=== PATIENT | male | born 1950 | race Asian ===

== ENCOUNTER 2019-09-23 11:19 | Inpatient (IN) | payer BC ==
[2019-09-23] MEDS ORDERED: SODIUM CHLORIDE 1,000 ML IV STA (11:42)
[2019-09-23] MEDS ORDERED: ACETAMINOPHEN 1000 MG/100 ML VIAL (NON FORMULARY) IVPB ONE (11:42)
[2019-09-23] MEDS ORDERED: ASPIRIN 325 MG TABLET PO ONE (11:42)
[2019-09-23] MEDS ORDERED: ASPIRIN 81 MG CHEWABLE TABLETS ONE (11:45)
[2019-09-23] MEDS ORDERED: ACETAMINOPHEN INJECTION 100 ML IVPB ONE (12:10)
[2019-09-23 12:17] LABS: VENOUS PC02 48.7 mmHg (38-52); VENOUS PH 7.38 (7.31-7.41)
[2019-09-23 12:18] LABS: VENOUS PO2 < 49 mmHg (28-48)
--- NOTE | 2019-09-23 12:18 | PDOC ---
Documentation entered by Aubrey Iqbal SCRIBE, acting as scribe for Patric Nath MD. Patric Nath MD: This documentation has been prepared by the Rasheed pineda Daniel, SCRIBE, under my direction and personally reviewed by me in its entirety. I confirm that the documentation accurately reflects all work, treatment, procedures, and medical decision making performed by me. Attending Attestation - Resident Resident Name: Cuate Elliott - ED Attending Attestation I have performed the following: I have examined & evaluated the patient, The case was reviewed & discussed with the resident, I agree w/resident's findings & plan, Exceptions are as noted - HPI HPI: 09/23/19 11:46 The patient is a 69 year old male with a past medical history of diabetes, HTN, and WPW s/p cardiac ablation ([facility] March 2019) here today for evaluation of chest discomfort and fevers. Pt states that he first started having flu-like symptoms a week ago. He reports fever of 100.2 and endorses malaise, and bodyaches. The patient reports that he was raking leaves on monday (09/20/19) when he developed chest discomfort which he states is similar to heartburn, worse with deep breaths and leaning forward, and is constant. As per family, the patient saw Dr. Carey this week and had a normal echo. Patient denies headache, lightheadedness. Denies fever, chills. Denies shortness of breath. Denies nausea, vomiting, diarrhea, abdominal pain. Denies leg swelling. Denies recent travel/immobilization. Allergies: [employer] Teacher: Toribio Carey - Physicial Exam PE: 09/23/19 11:46 GENERAL: Awake, alert, and fully oriented, in no acute distress. HEAD: No signs of trauma EYES: PERRLA, EOMI, sclera anicteric, conjunctiva clear ENT: Auricles normal inspection, hearing grossly normal, nares patent, oropharynx clear without exudates. Moist mucosa NECK: Nontender, no stepoffs, Normal ROM, supple, no lymphadenopathy, JVD, or masses LUNGS: Breath sounds equal, clear to auscultation bilaterally. No wheezes, and no crackles HEART: Regular rate and rhythm, normal S1 and S2, no murmurs, rubs or gallops ABDOMEN: Soft, nontender, normoactive bowel sounds. No guarding, no rebound. No masses EXTREMITIES: Normal range of motion, no edema. No clubbing or cyanosis. No cords, erythema, or tenderness NEUROLOGICAL: Cranial nerves II through XII intact. 5/5 strength and sensation in all extremities, Normal speech, normal gait, normal cerebellar function SKIN: Warm, Dry, normal turgor, no rashes or lesions noted. - Critical Care Time Total Critical Care Time: 60 Critical Care Statement: The care of this patient involved high complexity decision making to prevent further life threatening deterioration of the patient 's condition and/or to evaluate & treat vital organ system(s) failure or risk of failure. - Medical Decision Making 09/23/19 12:29 69 M with chest pain, fevers. EKG today show sinus tach with diffuse MA- depressions and ST elevations. Concerning for pericarditis. Given recent viral illness, suspect viral pericarditis. Bedside echo shows + pericardial effusion. - Labs, trop - Aspirin - IVF Discussed case with Dr. Carey and reviewed EKG, which he agrees is not consistent with STEMI EKG.
--- NOTE | 2019-09-23 12:19 | PDOC ---
History of Present Illness - General Chief Complaint: Chest Pain Stated Complaint: CHEST PAIN/FEVER/HEADACHE Time Seen by Provider: 09/23/19 11:33 History Source: Patient, Family Exam Limitations: No Limitations - History of Present Illness Initial Comments: 09/23/19 12:10 69M with a PMH of HLD, DM, WPW s/p ablation who presents to the ER with complaints of flu-like symptoms and SOB. The patient states that he's had about 1 week of flu-like symptoms including myalgias and weakness. For the past 3-4 days, he has also complained of chest tightness and SOB. He states that he may have overexerted himself raking his law 4 days ago and that's when he developed the chest tightness. He admits to chest tightness presently with SOB which is worsened when he leans forward. Denies nausea, vomiting, abd pain, palpitations , and diaphoresis. Past History - Past Medical History Allergies/Adverse Reactions: Allergies Allergy/AdvReac Type Severity Reaction Status Date / Time No Known Allergies Allergy Verified 09/23/19 11:28 Home Medications: Ambulatory Orders Atorvastatin Ca [Lipitor] 10 mg PO HS 09/23/19 Metformin HCl [Glucophage] 500 mg PO TID 09/23/19 Metoprolol Succinate [Toprol Xl] 25 mg PO DAILY 09/23/19 Cardiac Disorders: Yes COPD: No GI Disorders: No Psychiatric Problems: No - Surgical History Cardiac Surgery: Yes - Immunization History Immunization Up to Date: No - Psycho Social/Smoking Cessation Hx Smoking History: Never smoked Have you smoked in the past 12 months: No Information on smoking cessation initiated: No Hx Alcohol Use: No Drug/Substance Use Hx: No Review of Systems - Review of Systems Able to Perform ROS?: Yes Comments:: 09/23/19 12:19 GENERAL/CONSTITUTIONAL: No fever or chills. No weakness. HEAD, EYES, EARS, NOSE AND THROAT: No change in vision. No ear pain or discharge. No sore throat. CARDIOVASCULAR: + for chest tightness. No palpitations, or lightheadedness. RESPIRATORY: + for SOB. No cough, wheezing, shortness of breath, or hemoptysis. GASTROINTESTINAL: No abdominal pain, nausea, vomiting, diarrhea, or constipation. GENITOURINARY: No dysuria, frequency, hematuria, or change in urination. MUSCULOSKELETAL: + for myalgias. No neck or back pain. SKIN: No rash or lesions. NEUROLOGIC: No headache, numbness, tingling, focal weakness, loss of consciousness, or change in strength/sensation. Is the patient limited [place] proficient: No *Physical Exam - Vital Signs Last Vital Signs Temp Pulse Resp BP Pulse Ox 98.8 F 137 H 16 132/81 98 09/23/19 11:24 09/23/19 11:24 09/23/19 11:24 09/23/19 11:24 09/23/19 11:24 - Physical Exam Comments: 09/23/19 12:24 GENERAL: Well developed, well nourished. Awake and alert. No acute distress. HEENT: Normocephalic, atraumatic. Hearing grossly normal. Moist mucous membranes. PERRLA, EOMI. No conjunctival pallor. Sclera are non-icteric. NECK: Supple. Full ROM. No JVD. CARDIOVASCULAR: Tachycardic with regular rhythm. No murmurs, rubs, or gallops. PULMONARY: No evidence of respiratory distress. Lungs clear to auscultation bilaterally. No wheezing, rales or rhonchi. ABDOMINAL: Soft. Non-tender. Non-distended. No rebound or guarding. GENITOURINARY: No CVA tenderness bilaterally. MUSCULOSKELETAL: Normal range of motion at all joints. No bony deformities or tenderness. EXTREMITIES: No cyanosis. No clubbing. No edema. No calf tenderness or swelling. SKIN: Warm and dry. Normal capillary refill. No rashes. No jaundice. NEUROLOGICAL: Alert, awake, appropriate. Cranial nerves 2-12 grossly intact. Normal speech. Gait is normal without ataxia. PSYCHIATRIC: Cooperative. Good eye contact. Appropriate mood and affect. Heart Score/ECG Review - History History: Slightly suspicious - Electrocardiogram EKG: Normal - Age Age: >/= 65 - Risk Factors Risk Factors Heart Score: Yes Hx Hypercholesterolemia, Yes Hx Diabetes, Yes Positive family hx of cardiac disease Based on the list above the patient has:: >/=3 risk factors or Hx atherosclerotic disease #1 Compared to previous ECG there are: Previous ECG unavail 09/23/19 12:28 Sinus tach @ 135 AR 146 QRS 84 QTc 417 JESSI noted in II, III, aVF AR depressions noted throughout all leads No priors ED Treatment Course - LABORATORY CBC & Chemistry Diagram: 09/23/19 12:00 09/23/19 12:00 - Medications Given in the ED: ED Medications Discontinued Medications Generic Name Dose Route Start Last Admin Trade Name Christel PRN Reason Stop Dose Admin Aspirin 325 mg 09/23/19 11:42 09/23/19 12:07 Asa - PO 09/23/19 11:43 325 mg ONCE ONE Administration Medical Decision Making - Medical Decision Making 09/23/19 12:29 69M with a PMH of DM, HLD, and former ablation who presents to the ER with complaints of myalgias, chest tightness, and SOB concerning for SD, CHF, pericarditis. Pt was also noted to be tachycardic and febrile on arrival so sepsis and cardiac workup in progress. POCUS shows small pericardial effusion w/ o tamponade physiology and adequate contractility. Pending labs and CXR. 09/23/19 15:50 Labs WNL. Lactate slightly elevated. Dr. Carey saw patient and agrees with admission. Pt endorsed to Dr. Cook for admission. Discharge - Discharge Information Problems reviewed: Yes Clinical Impression/Diagnosis: Pericardial effusion Viral pericarditis Qualifiers: Chronicity: acute Qualified Code(s): I30.1 - Infective pericarditis Condition: Guarded - Admission Yes - Follow up/Referral - Patient Discharge Instructions - Post Discharge Activity
[2019-09-23 12:23] LABS: BASO % 0.3 % (0-2.0); EOS % 0.1 % (0-4.5); HEMATOCRIT 41.2 % (35.4-49); LYMPH % 9.2 % (8-40); MCH 30.3 pg (25.7-33.7); MEAN CELL VOLUME 89.1 fl (80-96); MEAN PLT VOLUME 9.9 fl (7.5-11.1); MONO % 9.2 % (3.8-10.2); NEUT % 81.2 % (42.8-82.8); PLATELET COUNT 150 K/MM3 (134-434); RBC 4.62 M/mm3 (4.00-5.60); RDW 13.9 % (11.9-15.9); WHITE BLOOD COUNT 9.5 K/mm3 (4.0-10.0)
[2019-09-23 12:32] LABS: INR 1.2 (0.83-1.09); PROTHROMBIN TIME (PATIENT) 14.2 SEC (9.7-13.0)
[2019-09-23 12:55] LABS: ALBUMIN 3.6 g/dl (3.4-5.0); BILIRUBIN,TOTAL 1.4 mg/dL (0.2-1); BLOOD UREA NITROGEN 13.3 mg/dL (7-18); CALCIUM 8.9 mg/dL (8.5-10.1); POTASSIUM 4.6 mmol/L (3.5-5.1); TOT PROT 7.2 g/dl (6.4-8.2)
[2019-09-23] MEDS ORDERED: SODIUM CHLORIDE 0.9% 1000 ML INFUS.BAG IV ONE (13:10)
--- NOTE | 2019-09-23 13:19 | CON.CARD ---
Consult Consult Specialty:: Cardiology Referred by:: ER Reason for Consultation:: Cardiac evaluation - History of Present Illness Chief Complaint: Chest pain and shortness of breath History of Present Illness: Patient is a 69 year old Tajik male well known to me with underlying history of type 2 DM, PSVT s/p EP study and RFA at [facility] (Dr. Miley Lugo) complicated by pericardial effusion/tamponade s/p pericardiocentesis with drain. He was seen by me in the office last week and was unremarkable. He presents to ED with chest discomfort with deep breath and also complains of shortness of breath and increased weakness. He complains of fever. ECG reveals sinus tachycardia with diffuse ST segment elevations. He denies palpitations. He denies paroxysmal nocturnal dyspnea or orthopnea. He denies nausea, vomiting, diarrhea or abdominal pain. He denies headache or lightheadedness. Last echocardiography in the office 09/06/19) revealed normal LV systolic function, LVEF 60-65%, no pericardial effusion, mild MR and mild TR. - History Source History Provided By: Patient, Medical Record Limitations to Obtaining History: No Limitations - Past Medical History Cardio/Vascular: Yes: Other (PSVT s/p RFA complicated by pericardial effusion and tamponade) Endocrine: Yes: Diabetes Mellitus - Past Surgical History Additional Surgical History: pericardiocentesis. RFA - Alcohol/Substance Use Hx Alcohol Use: No - Smoking History Smoking history: Never smoked Have you smoked in the past 12 months: No Home Medications - Allergies Allergies/Adverse Reactions: Allergies Allergy/AdvReac Type Severity Reaction Status Date / Time No Known Allergies Allergy Verified 09/23/19 11:28 Family Medical History Family History: Denies Review of Systems - Review of Systems Constitutional: reports: Fever, Weakness. denies: Chills Cardiovascular: reports: Chest Pain, Shortness of Breath. denies: Palpitations Respiratory: reports: SOB. denies: Cough, Hemoptysis, Orthopnea, PND Gastrointestinal: denies: Abdominal Pain, Constipation, Diarrhea, Melena, Nausea , Rectal Bleeding, Vomiting Genitourinary: denies: Dysuria, Hematuria Musculoskeletal: denies: Back Pain, Joint Pain Neurological: denies: Dizziness, Headache, Seizure, Syncope Vital Signs: Vital Signs Temperature 98.8 F 09/23/19 11:24 Pulse Rate 137 H 09/23/19 11:24 Respiratory Rate 16 09/23/19 11:24 Blood Pressure 132/81 09/23/19 11:24 O2 Sat by Pulse Oximetry (%) 98 09/23/19 11:24 Eyes: Yes: PERRL HENT: Yes: Atraumatic Neck: Yes: Supple Respiratory: Yes: Diminished Gastrointestinal: Yes: Normal Bowel Sounds, Soft. No: Tenderness Cardiovascular: Yes: Tachycardia JVD: No Carotid Bruit: No Heart Sounds: Yes: S1, S2 Edema: No - Other Data Labs, Other Data: CBC, BMP 09/23/19 12:00 09/23/19 12:00 INR, PTT INR 1.20 (0.83-1.09) H 09/23/19 12:00 Troponin, BNP 09/23/19 09/23/19 12:00 12:00 Troponin I < 0.02 B-Natriuretic Peptide 289.4 H Sinus tachycardia, ST abnormality, ? pericarditis Echo: Pending Imaging - Results Chest X-ray: Pending EKG: Report Reviewed Problem List - Problems (1) Viral pericarditis Code(s): B33.23 - VIRAL PERICARDITIS (2) PSVT (paroxysmal supraventricular tachycardia) Code(s): I47.1 - SUPRAVENTRICULAR TACHYCARDIA (3) Diabetes mellitus Code(s): E11.9 - TYPE 2 DIABETES MELLITUS WITHOUT COMPLICATIONS (4) Pericardial effusion Code(s): I31.3 - PERICARDIAL EFFUSION (NONINFLAMMATORY) Assessment/Plan 1. Clinical presentation suggests pericarditis ?viral 2. History of PSVT s/p EP and RFA 3. Above procedure complicated by pericardial effusion/tamponade s/p pericardiocentesis and drain 4. Type 2 DM PLAN: 1. Echocardiography to assess LV/RV, valvular function and pericardial effusion 2. Consider NSAIDs 3. Rule out flu 4. Continue Metoprolol ER 25 mg QD 5. Check ESR and CRP 6. Trend troponins Further plans are to follow Toribio Carey MD
[2019-09-23] MEDS ORDERED: metoPROLOL SUCCINATE 25 MG TAB.SR.24H (FP) PO ONE (15:00)
[2019-09-23] MEDS ORDERED: METOPROLOL TARTRATE 25 MG TABLET (FP) ONE (15:47)
--- NOTE | 2019-09-23 16:53 | ECHO ---
Name: MARIYA AVILES Exam:Adult Echocardiogram Study Date: 09/23/2019 03:56 PM Age: 69 yrs Height: 64 in Weight: 145 lb BSA: 1.7 m2 MMode/2D Measurements & Calculations IVSd: 1.2 cm Ao root diam: 3.0 cm LVIDd: 3.2 cm LA dimension: 3.0 cm LVIDs: 2.4 cm LVPWd: 1.1 cm LVPWs: 0.77 cm EDV(Teich): 41.5 ml ESV(Teich): 20.4 ml LVOT diam: 2.2 cm LAV (MOD-bp): 31.9 ml TAPSE: 1.2 cm Doppler Measurements & Calculations MV E max cindy: 72.8 cm/sec Ao V2 max: 99.9 cm/sec MV A max cindy: 35.4 cm/sec Ao max P.1 mmHg MV E/A: 2.1 ERNESTINE(V,D): 3.2 cm2 MV dec time: 0.18 sec LV V1 max P.0 mmHg PA V2 max: 106.6 cm/sec LV V1 max: 86.3 cm/sec PA max P.5 mmHg Procedure A complete two-dimensional transthoracic echocardiogram was performed (2D, M-mode, Doppler and color flow Doppler). Left Ventricle The left ventricle is normal in size. There is mild concentric left ventricular hypertrophy. Left megan tricular systolic function is normal. Ejection Fraction = 55-60%. No regional wall motion abnormalities noted. Right Ventricle The right ventricle is normal size. The right ventricular systolic function is normal. Atria The left atrial size is normal. Right atrial size is normal. Mitral Valve The mitral valve is normal in structure and function. There is mild mitral regurgitation. Tricuspid Valve The tricuspid valve is normal in structure and function. There is mild tricuspid regurgitation. Aortic Valve The aortic valve is normal in structure and function. No aortic regurgitation is present. Pulmonic Valve The pulmonic valve is not well visualized. Trace to mild pulmonic valvular regurgitation. Great Vessels The aortic root is normal size. Pericardium/Pleura Small to moderate pericardial effusion with mid diastolic collapse of RV. Interpretation Summary The left ventricle is normal in size. There is mild concentric left ventricular hypertrophy. Left ventricular systolic function is normal. No regional wall motion abnormalities noted. Ejection Fraction = 55-60%. The right ventricular systolic function is normal. The left atrial size is normal. Right atrial size is normal. There is mild mitral regurgitation. There is mild tricuspid regurgitation. Trace to mild pulmonic valvular regurgitation. Small to moderate pericardial effusion with mid diastolic collapse of RV Clinical correlation is recommended Toribio Carey MD 09/23/2019 04:52 PM
--- NOTE | 2019-09-23 18:33 | HP ---
Admitting History and Physical - Primary Care Physician PCP: Hector Cook - Admission History of Present Illness: 69 year old male with a past medical history of diabetes, HTN, and WPW s/p cardiac ablation ([facility] March 2019) here today for evaluation of chest discomfort and fevers. Pt states that he first started having flu-like symptoms a week ago. He reports fever of 100.2 and endorses malaise, and bodyaches. The patient reports that he was raking leaves on monday (09/20/19) when he developed chest discomfort which he states is similar to heartburn, worse with deep breaths and leaning forward, and is constant. As per family, the patient saw Dr. Carey this week and had a normal echo. - Past Medical History Cardiovascular: Yes: HTN, Other (PSVT s/p RFA complicated by pericardial effusion and tamponade) Endocrine: Yes: Diabetes Mellitus - Smoking History Smoking history: Never smoked Have you smoked in the past 12 months: No - Alcohol/Substance Use Hx Alcohol Use: No Home Medications - Allergies Allergies/Adverse Reactions: Allergies Allergy/AdvReac Type Severity Reaction Status Date / Time No Known Allergies Allergy Verified 09/23/19 11:28 - Home Medications Home Medications: Ambulatory Orders Atorvastatin Ca [Lipitor] 10 mg PO HS 09/23/19 Metformin HCl [Glucophage] 500 mg PO TID 09/23/19 Metoprolol Succinate [Toprol Xl] 25 mg PO DAILY 09/23/19 Physical Examination Vital Signs: Vital Signs Temperature 98.5 F 09/23/19 15:28 Pulse Rate 112 H 09/23/19 15:28 Respiratory Rate 19 09/23/19 15:28 Blood Pressure 107/73 09/23/19 15:28 O2 Sat by Pulse Oximetry (%) 100 09/23/19 15:28 Constitutional: Yes: No Distress HENT: Yes: Atraumatic Neck: Yes: Supple Cardiovascular: Yes: Regular Rate and Rhythm Respiratory: Yes: CTA Bilaterally Gastrointestinal: Yes: Normal Bowel Sounds Extremities: Yes: WNL Edema: No Peripheral Pulses WNL: Yes Neurological: Yes: Alert, Oriented Labs: CBC, BMP 09/23/19 12:00 09/23/19 12:00 Imaging - Results X-ray: Report Reviewed Problem List - Problems (1) Diabetes mellitus Assessment/Plan: on meds monitor bgm Code(s): E11.9 - TYPE 2 DIABETES MELLITUS WITHOUT COMPLICATIONS (2) PSVT (paroxysmal supraventricular tachycardia) Code(s): I47.1 - SUPRAVENTRICULAR TACHYCARDIA (3) Pericardial effusion Assessment/Plan: echo to assess cardiology consult Code(s): I31.3 - PERICARDIAL EFFUSION (NONINFLAMMATORY) (4) Viral pericarditis Assessment/Plan: will get id consult Code(s): B33.23 - VIRAL PERICARDITIS Qualifiers: Chronicity: acute Qualified Code(s): I30.1 - Infective pericarditis Assessment/Plan Laboratory Tests 09/23/19 09/23/19 09/23/19 12:00 12:00 12:00 WBC 9.5 RBC 4.62 Hgb 14.0 Hct 41.2 MCV 89.1 MCH 30.3 MCHC 34.0 RDW 13.9 Plt Count 150 MPV 9.9 Absolute Neuts (auto) 7.7 Neutrophils % 81.2 Lymphocytes % 9.2 Monocytes % 9.2 Eosinophils % 0.1 Basophils % 0.3 Nucleated RBC % 0 ESR PT with INR INR PTT (Actin FS) 35.8 VBG pH POC VBG pCO2 POC VBG pO2 VBG HCO3 VBG O2 Sat (Shai) VBG Base Excess Sodium Potassium Chloride Carbon Dioxide Anion Gap BUN Creatinine Est GFR (CKD-EPI)AfAm Est GFR (CKD-EPI)NonAf Random Glucose Lactic Acid Calcium Total Bilirubin AST ALT Alkaline Phosphatase Creatine Kinase 31 Troponin I < 0.02 C-Reactive Protein B-Natriuretic Peptide Total Protein Albumin Lipase TSH Influenza A (Rapid) Influenza B (Rapid) 09/23/19 09/23/19 09/23/19 12:00 12:00 12:00 WBC RBC Hgb Hct MCV MCH MCHC RDW Plt Count MPV Absolute Neuts (auto) Neutrophils % Lymphocytes % Monocytes % Eosinophils % Basophils % Nucleated RBC % ESR PT with INR INR PTT (Actin FS) VBG pH POC VBG pCO2 POC VBG pO2 VBG HCO3 VBG O2 Sat (Shai) VBG Base Excess Sodium 132 L Potassium 4.6 Chloride 98 Carbon Dioxide 28 Anion Gap 7 L BUN 13.3 Creatinine 1.0 Est GFR (CKD-EPI)AfAm 89.86 Est GFR (CKD-EPI)NonAf 77.54 Random Glucose 236 H Lactic Acid 2.3 H* Calcium 8.9 Total Bilirubin 1.4 H AST 34 ALT 63 H Alkaline Phosphatase 101 Creatine Kinase Troponin I C-Reactive Protein B-Natriuretic Peptide Total Protein 7.2 Albumin 3.6 Lipase 137 TSH 0.74 Influenza A (Rapid) Influenza B (Rapid) 09/23/19 09/23/19 09/23/19 12:00 12:00 12:00 WBC RBC Hgb Hct MCV MCH MCHC RDW Plt Count MPV Absolute Neuts (auto) Neutrophils % Lymphocytes % Monocytes % Eosinophils % Basophils % Nucleated RBC % ESR PT with INR 14.20 H INR 1.20 H PTT (Actin FS) VBG pH 7.38 POC VBG pCO2 48.7 POC VBG pO2 < 49 H VBG HCO3 27.9 VBG O2 Sat (Shai) 27.7 L VBG Base Excess 2.4 H Sodium Potassium Chloride Carbon Dioxide Anion Gap BUN Creatinine Est GFR (CKD-EPI)AfAm Est GFR (CKD-EPI)NonAf Random Glucose Lactic Acid Calcium Total Bilirubin AST ALT Alkaline Phosphatase Creatine Kinase Troponin I C-Reactive Protein B-Natriuretic Peptide 289.4 H Total Protein Albumin Lipase TSH Influenza A (Rapid) Influenza B (Rapid) 09/23/19 09/23/19 09/23/19 15:26 15:45 15:45 WBC RBC Hgb Hct MCV MCH MCHC RDW Plt Count MPV Absolute Neuts (auto) Neutrophils % Lymphocytes % Monocytes % Eosinophils % Basophils % Nucleated RBC % ESR 44 H PT with INR INR PTT (Actin FS) VBG pH POC VBG pCO2 POC VBG pO2 VBG HCO3 VBG O2 Sat (Shai) VBG Base Excess Sodium Potassium Chloride Carbon Dioxide Anion Gap BUN Creatinine Est GFR (CKD-EPI)AfAm Est GFR (CKD-EPI)NonAf Random Glucose Lactic Acid Calcium Total Bilirubin AST ALT Alkaline Phosphatase Creatine Kinase Troponin I C-Reactive Protein 18.7 H B-Natriuretic Peptide Total Protein Albumin Lipase TSH Influenza A (Rapid) Negative Influenza B (Rapid) Negative Active Medications Generic Name Dose Route Start Last Admin Trade Name Freq PRN Reason Stop Dose Admin Colchicine 0.6 mg 09/23/19 18:00 Colcrys PO BID HILLARY Naproxen 500 mg 09/23/19 22:00 Naprosyn - PO BID HILLARY Active Medications Generic Name Dose Route Start Last Admin Trade Name Freq PRN Reason Stop Dose Admin Acetaminophen 650 mg 09/23/19 21:34 09/23/19 22:22 Tylenol - PO 650 mg Q6H PRN Administration FEVER Atorvastatin Calcium 10 mg 09/23/19 22:00 09/23/19 22:22 Lipitor - PO 10 mg HS HILLARY Administration Colchicine 0.6 mg 09/23/19 18:00 09/24/19 10:32 Colcrys PO 0.6 mg BID H[place]ARY Administration Metformin HCl 500 mg 09/23/19 22:00 09/24/19 18:04 Glucophage - PO 500 mg TIDAC H[place] Administration Metoprolol Succinate 25 mg 09/24/19 10:00 09/24/19 10:31 Toprol Xl - PO 25 mg DAILY H[place] Administration Naproxen 500 mg 09/23/19 22:00 09/24/19 10:31 Naprosyn - PO 500 mg BID [place] Administration
[2019-09-23] MEDS ORDERED: COLCHICINE 0.6 MG CAP ONE (19:41)
[2019-09-23] MEDS: COLCHICINE 0.6 MG CAP PO SCH ×2 (20:24→22:22)
[2019-09-23] MEDS ORDERED: ACETAMINOPHEN 325 MG TABLET (FP) PO PRN (21:34)
[2019-09-23] MEDS: ATORVASTATIN CA 10 MG TABLET (FP) PO SCH (22:22)
[2019-09-23] MEDS: metFORMIN HCL 500 MG TABLET (FP) PO SCH (22:22)
[2019-09-23] MEDS: NAPROXEN 500 MG TABLET (FP) PO SCH (22:23)
[2019-09-24 02:24] VITALS: BMI 25.3
[2019-09-24] MEDS: metFORMIN HCL 500 MG TABLET (FP) PO SCH ×3 (06:35→18:04)
[2019-09-24 07:03] LABS: HEMATOCRIT 36.9 % (35.4-49); HEMOGLOBIN 12.3 GM/dL (11.7-16.9); LYMPH % 9.2 % (8-40); MCH 30.3 pg (25.7-33.7); MCHC 33.3 g/dl (32.0-35.9); MEAN CELL VOLUME 90.9 fl (80-96); MEAN PLT VOLUME 9.8 fl (7.5-11.1); MONO % 10.2 % (3.8-10.2); NEUT % 78.9 % (42.8-82.8); PLATELET COUNT 123 K/MM3 (134-434); RBC 4.06 M/mm3 (4.00-5.60); RDW 14.4 % (11.9-15.9)
[2019-09-24 07:04] LABS: BASO % 0.4 % (0-2.0); EOS % 1.3 % (0-4.5)
[2019-09-24 07:52] LABS: ALBUMIN 3.1 g/dl (3.4-5.0); BILIRUBIN,TOTAL 0.8 mg/dL (0.2-1); CALCIUM 8.2 mg/dL (8.5-10.1); CREATININE 0.9 mg/dL (0.55-1.3); POTASSIUM 4.1 mmol/L (3.5-5.1); TOT PROT 5.9 g/dl (6.4-8.2)
--- NOTE | 2019-09-24 10:26 | PN ---
Progress Note, Physician Chief Complaint: Events noted Feels better History of Present Illness: Patient was seen and examined. Awake and alert. Chart was reviewed Denies shortness of breath or palpitations. Denies chest pain - Current Medication List Current Medications: Active Medications Acetaminophen (Tylenol -) 650 mg PO Q6H PRN PRN Reason: FEVER Last Admin: 09/23/19 22:22 Dose: 650 mg Atorvastatin Calcium (Lipitor -) 10 mg PO HS [facility] Last Admin: 09/23/19 22:22 Dose: 10 mg Colchicine (Colcrys) 0.6 mg PO BID [facility] Last Admin: 09/23/19 22:22 Dose: 0.6 mg Metformin HCl (Glucophage -) 500 mg PO TIDAC [facility] Last Admin: 09/24/19 06:35 Dose: 500 mg Metoprolol Succinate (Toprol Xl -) 25 mg PO DAILY [facility] Naproxen (Naprosyn -) 500 mg PO BID [facility] Last Admin: 09/23/19 22:23 Dose: 500 mg - Objective Vital Signs: Vital Signs Temperature 98.4 F 09/24/19 06:00 Pulse Rate 98 H 09/24/19 09:49 Respiratory Rate 18 09/24/19 09:49 Blood Pressure 115/71 09/24/19 09:49 O2 Sat by Pulse Oximetry (%) 97 09/24/19 09:00 Eyes: Yes: PERRL HENT: Yes: Atraumatic Neck: Yes: Supple Cardiovascular: Yes: Tachycardia, S1, S2 Respiratory: Yes: CTA Bilaterally Gastrointestinal: Yes: Normal Bowel Sounds, Soft. No: Tenderness Edema: No Additional Findings/Remarks: - Review of Systems Constitutional: reports: Fever, Weakness. denies: Chills Cardiovascular: reports: Chest Pain, Shortness of Breath. denies: Palpitations Respiratory: reports: SOB. denies: Cough, Hemoptysis, Orthopnea, PND Gastrointestinal: denies: Abdominal Pain, Constipation, Diarrhea, Melena, Nausea , Rectal Bleeding, Vomiting Genitourinary: denies: Dysuria, Hematuria Musculoskeletal: denies: Back Pain, Joint Pain Neurological: denies: Dizziness, Headache, Seizure, Syncope Labs: CBC, BMP 09/24/19 06:15 09/24/19 06:15 INR, PTT INR 1.20 (0.83-1.09) H 11/18/19 12:00 Problem List - Problems (1) Viral pericarditis Code(s): B33.23 - VIRAL PERICARDITIS Qualifiers: Chronicity: acute Qualified Code(s): I30.1 - Infective pericarditis (2) PSVT (paroxysmal supraventricular tachycardia) Code(s): I47.1 - SUPRAVENTRICULAR TACHYCARDIA (3) Diabetes mellitus Code(s): E11.9 - TYPE 2 DIABETES MELLITUS WITHOUT COMPLICATIONS (4) Pericardial effusion Code(s): I31.3 - PERICARDIAL EFFUSION (NONINFLAMMATORY) Assessment/Plan 1. Clinical presentation suggests pericarditis ?viral currently with pericardial effusion with RV compression 2. History of PSVT s/p EP and RFA 3. Above procedure complicated by pericardial effusion/tamponade s/p pericardiocentesis and drain in the past 4. Type 2 DM PLAN: 1. Echocardiography was reviewed. Echocardiography can be repeated to assess amount of pericardial effusion 2. Continue NSAIDs (Naprosyn 500 mg BID). Also Colchicine 0.6 mg BID added 3. Negative for Influenza 4. Continue Metoprolol ER 25 mg QD 5. Trend troponins Further plans are to follow Toribio Carey MD
[2019-09-24] MEDS: NAPROXEN 500 MG TABLET (FP) PO SCH ×2 (10:31→22:29)
[2019-09-24] MEDS: metoPROLOL SUCCINATE 25 MG TAB.SR.24H (FP) PO SCH (10:31)
[2019-09-24] MEDS: COLCHICINE 0.6 MG CAP PO SCH ×2 (10:32→22:29)
--- NOTE | 2019-09-24 10:43 | EKG ---
Test Reason : Blood Pressure : / mmHG Vent. Rate : 135 BPM Atrial Rate : 135 BPM P-R Int : 146 ms QRS Dur : 084 ms QT Int : 278 ms P-R-T Axes : 051 035 032 degrees QTc Int : 417 ms SINUS TACHYCARDIA POSSIBLE LEFT ATRIAL ENLARGEMENT ST ELEVATION CONSIDER INFEROLATERAL INJURY OR ACUTE INFARCT ACUTE [place] / STEMI Confirmed by MD LINDA, FERNANDA ([id number]) on 09/24/2019 10:43:09 AM Referred By: Confirmed By:FERNANDA MCKEON MD
--- NOTE | 2019-09-24 12:21 | PN ---
Progress Note, Physician - Current Medication List Current Medications: Active Medications Acetaminophen (Tylenol -) 650 mg PO Q6H PRN PRN Reason: FEVER Last Admin: 09/23/19 22:22 Dose: 650 mg Atorvastatin Calcium (Lipitor -) 10 mg PO HS [facility] Last Admin: 09/23/19 22:22 Dose: 10 mg Colchicine (Colcrys) 0.6 mg PO BID [facility] Last Admin: 09/24/19 10:32 Dose: 0.6 mg Metformin HCl (Glucophage -) 500 mg PO TIDAC [facility] Last Admin: 09/24/19 06:35 Dose: 500 mg Metoprolol Succinate (Toprol Xl -) 25 mg PO DAILY [facility] Last Admin: 09/24/19 10:31 Dose: 25 mg Naproxen (Naprosyn -) 500 mg PO BID [facility] Last Admin: 09/24/19 10:31 Dose: 500 mg - Objective Vital Signs: Vital Signs Temperature 98.4 F 09/24/19 06:00 Pulse Rate 98 H 09/24/19 09:49 Respiratory Rate 18 09/24/19 09:49 Blood Pressure 115/71 09/24/19 09:49 O2 Sat by Pulse Oximetry (%) 97 09/24/19 09:00 Constitutional: Yes: No Distress HENT: Yes: Atraumatic Neck: Yes: Supple Cardiovascular: Yes: Regular Rate and Rhythm Respiratory: Yes: CTA Bilaterally Gastrointestinal: Yes: Normal Bowel Sounds Extremities: Yes: WNL Neurological: Yes: Alert, Oriented Labs: CBC, BMP 09/24/19 06:15 09/24/19 06:15 INR, PTT INR 1.20 (0.83-1.09) H 09/23/19 12:00 Problem List - Problems (1) Diabetes mellitus Assessment/Plan: on meds monitor bgm Code(s): E11.9 - TYPE 2 DIABETES MELLITUS WITHOUT COMPLICATIONS Qualifiers: Diabetes mellitus type: type 2 (2) PSVT (paroxysmal supraventricular tachycardia) Code(s): I47.1 - SUPRAVENTRICULAR TACHYCARDIA (3) Pericardial effusion Assessment/Plan: echo to assess cardiology consult Code(s): I31.3 - PERICARDIAL EFFUSION (NONINFLAMMATORY)
--- NOTE | 2019-09-24 13:51 | CON.ID ---
Consult Consult Specialty:: infectious diseases Referred by:: Reason for Consultation:: fever - History of Present Illness Chief Complaint: fever,weakness,chest pain History of Present Illness: 69 year old [place] male with underlying history of type 2 DM, PSVT s/p EP study and RFA at [facility] complicated by pericardial effusion/tamponade s/p pericardiocentesis with drain. presented to ED with chest discomfort with deep breath and also complains of shortness of breath and increased weakness. He complains of fever. He denies palpitations. He denies paroxysmal nocturnal dyspnea or orthopnea. He denies nausea, vomiting, diarrhea or abdominal pain. patient mentions last night that he was sweating currently he feels better but still sweating patient on admission spiked to 102 his pain is like a gerd pain and mainly on left side and it extends from xiphisternum to neck - History Source History Provided By: Patient, Medical Record Limitations to Obtaining History: Language Barrier - Past Medical History Cardio/Vascular: Yes: Other (PSVT s/p RFA complicated by pericardial effusion and tamponade) Endocrine: Yes: Diabetes Mellitus - Past Surgical History Additional Surgical History: pericardiocentesis. RFA - Alcohol/Substance Use Hx Alcohol Use: No - Smoking History Smoking history: Never smoked Have you smoked in the past 12 months: No Home Medications - Allergies Allergies/Adverse Reactions: Allergies Allergy/AdvReac Type Severity Reaction Status Date / Time No Known Allergies Allergy Verified 09/23/19 11:28 - Home Medications Home Medications: Ambulatory Orders Atorvastatin Ca [Lipitor] 10 mg PO HS 09/23/19 Metformin HCl [Glucophage] 500 mg PO TID 09/23/19 Metoprolol Succinate [Toprol Xl] 25 mg PO DAILY 09/23/19 Review of Systems - Review of Systems Constitutional: reports: Fever, Other Eyes: reports: No Symptoms HENT: reports: No Symptoms Neck: reports: No Symptoms Cardiovascular: reports: Chest Pain Respiratory: reports: No Symptoms Gastrointestinal: reports: No Symptoms Genitourinary: reports: No Symptoms Musculoskeletal: reports: No Symptoms Neurological: reports: No Symptoms Endocrine: reports: No Symptoms Hematology/Lymphatic: reports: No Symptoms Psychiatric: reports: No Symptoms Physical Exam Vital Signs: Vital Signs Temperature 98.4 F 09/24/19 06:00 Pulse Rate 98 H 09/24/19 09:49 Respiratory Rate 18 09/24/19 09:49 Blood Pressure 115/71 09/24/19 09:49 O2 Sat by Pulse Oximetry (%) 97 09/24/19 09:00 Constitutional: Yes: Well Nourished, Calm, Mild Distress Eyes: Yes: Conjunctiva Clear HENT: Yes: Atraumatic Cardiovascular: Yes: Regular Rate and Rhythm Respiratory: Yes: Regular, CTA Bilaterally Gastrointestinal: Yes: Normal Bowel Sounds, Soft Musculoskeletal: Yes: WNL Extremities: Yes: WNL Neurological: Yes: Alert, Oriented Psychiatric: Yes: Alert, Oriented Labs: CBC, BMP 09/24/19 06:15 09/24/19 06:15 Imaging - Results Chest X-ray: Report Reviewed, Image Reviewed Assessment/Plan this patient with multiple medical issues coming in with weakness and fever i am leaning towards viral infection on the patient patient still sweating crp very high cardio note noted suspicious of viral pericarditis plan to repeat echo again and see Problem List - Problems (1) Viral pericarditis Code(s): B33.23 - VIRAL PERICARDITIS (2) PSVT (paroxysmal supraventricular tachycardia) Code(s): I47.1 - SUPRAVENTRICULAR TACHYCARDIA (3) Diabetes mellitus Code(s): E11.9 - TYPE 2 DIABETES MELLITUS WITHOUT COMPLICATIONS (4) Pericardial effusion Code(s): I31.3 - PERICARDIAL EFFUSION (NONINFLAMMATORY) plan will hold of on abx at this time will check a crp tomorrow monitor for fevers rest as per the team
[2019-09-24] MEDS ORDERED: CEFTRIAXONE 1 GM in DEXTROSE 5%-WATER - 50 ML IVPB SCH (14:00)
[2019-09-24] MEDS ORDERED: PT OWN MED DRAWER 7, Y5N ONE (21:09)
[2019-09-24] MEDS: ATORVASTATIN CA 10 MG TABLET (FP) PO SCH (22:29)
[2019-09-25] MEDS: metFORMIN HCL 500 MG TABLET (FP) PO SCH ×2 (06:03→12:17)
--- NOTE | 2019-09-25 09:20 | PN ---
Progress Note, Physician History of Present Illness: Pleuritic chest pain resolved. Afebrile, denies dyspnea. - Current Medication List Current Medications: Active Medications Acetaminophen (Tylenol -) 650 mg PO Q6H PRN PRN Reason: FEVER Last Admin: 09/23/19 22:22 Dose: 650 mg Atorvastatin Calcium (Lipitor -) 10 mg PO HS [facility] Last Admin: 09/24/19 22:29 Dose: 10 mg Colchicine (Colcrys) 0.6 mg PO BID [facility] Last Admin: 09/24/19 22:29 Dose: 0.6 mg Metformin HCl (Glucophage -) 500 mg PO TIDAC [facility] Last Admin: 09/25/19 06:03 Dose: 500 mg Metoprolol Succinate (Toprol Xl -) 25 mg PO DAILY [facility] Last Admin: 09/24/19 10:31 Dose: 25 mg Naproxen (Naprosyn -) 500 mg PO BID [facility] Last Admin: 09/24/19 22:29 Dose: 500 mg - Objective Vital Signs: Vital Signs Temperature 98.2 F 09/25/19 05:51 Pulse Rate 85 09/25/19 05:51 Respiratory Rate 20 09/25/19 05:51 Blood Pressure 104/64 09/25/19 05:51 O2 Sat by Pulse Oximetry (%) 95 09/24/19 22:00 Constitutional: Yes: No Distress, Calm, Thin Neck: Yes: Supple Cardiovascular: Yes: Regular Rate and Rhythm Respiratory: Yes: Regular, CTA Bilaterally Gastrointestinal: Yes: Normal Bowel Sounds, Soft Edema: No Labs: CBC, BMP 09/24/19 06:15 09/24/19 06:15 INR, PTT INR 1.20 (0.83-1.09) H 09/23/19 12:00 - ....Imaging EKG: Report Reviewed (Tele: NSR) Problem List - Problems (1) Hyperlipidemia Code(s): E78.5 - HYPERLIPIDEMIA, UNSPECIFIED Qualifiers: Hyperlipidemia type: pure hypercholesterolemia Qualified Code(s): E78.00 - Pure hypercholesterolemia, unspecified; E78.0 - Pure hypercholesterolemia (2) Diabetes mellitus Code(s): E11.9 - TYPE 2 DIABETES MELLITUS WITHOUT COMPLICATIONS Qualifiers: Diabetes mellitus type: type 2 (3) PSVT (paroxysmal supraventricular tachycardia) Code(s): I47.1 - SUPRAVENTRICULAR TACHYCARDIA (4) Pericardial effusion Code(s): I31.3 - PERICARDIAL EFFUSION (NONINFLAMMATORY) (5) Viral pericarditis Code(s): B33.23 - VIRAL PERICARDITIS Qualifiers: Chronicity: acute Qualified Code(s): I30.1 - Infective pericarditis Assessment/Plan 1. Viral pericarditis with pericardial effusion with RV compression w/o sxs of tamponade 2. History of PSVT s/p EP and RFA 3. Above procedure complicated by pericardial effusion/tamponade s/p pericardiocentesis and drain in the past 4. Type 2 DM PLAN: 1. Echocardiography was reviewed. Echocardiography can be repeated to assess amount of pericardial effusion as outpatient 2. Continue NSAIDs (Naprosyn 500 mg BID). Also Colchicine 0.6 mg BID added 3. Negative for Influenza 4. Continue Metoprolol ER 25 mg QD 5. Trops negative 6. March d/c home with f/u in office with Dr. Carey
[2019-09-25] MEDS: metoPROLOL SUCCINATE 25 MG TAB.SR.24H (FP) PO SCH (10:27)
[2019-09-25] MEDS: COLCHICINE 0.6 MG CAP PO SCH (10:27)
[2019-09-25] MEDS: NAPROXEN 500 MG TABLET (FP) PO SCH (12:18)
--- NOTE | 2019-09-25 12:44 | PN ---
Progress Note, Physician History of Present Illness: chest pain better - Current Medication List Current Medications: Active Medications Acetaminophen (Tylenol -) 650 mg PO Q6H PRN PRN Reason: FEVER Last Admin: 09/23/19 22:22 Dose: 650 mg Atorvastatin Calcium (Lipitor -) 10 mg PO HS [facility] Last Admin: 09/24/19 22:29 Dose: 10 mg Colchicine (Colcrys) 0.6 mg PO BID [facility] Last Admin: 09/25/19 10:27 Dose: 0.6 mg Metformin HCl (Glucophage -) 500 mg PO TIDAC [facility] Last Admin: 09/25/19 12:17 Dose: 500 mg Metoprolol Succinate (Toprol Xl -) 25 mg PO DAILY [facility] Last Admin: 09/25/19 10:27 Dose: 25 mg Naproxen (Naprosyn -) 500 mg PO BID [facility] Last Admin: 09/25/19 12:18 Dose: 500 mg - Objective Vital Signs: Vital Signs Temperature 98.2 F 09/25/19 05:51 Pulse Rate 85 09/25/19 05:51 Respiratory Rate 20 09/25/19 05:51 Blood Pressure 104/64 09/25/19 05:51 O2 Sat by Pulse Oximetry (%) 95 09/24/19 22:00 Constitutional: Yes: No Distress, Calm Cardiovascular: Yes: S1, S2 Respiratory: Yes: Regular, CTA Bilaterally Gastrointestinal: Yes: Normal Bowel Sounds, Soft Musculoskeletal: Yes: WNL Extremities: Yes: WNL Neurological: Yes: Alert, Oriented Psychiatric: Yes: Alert, Oriented Labs: CBC, BMP 09/24/19 06:15 09/24/19 06:15 INR, PTT INR 1.20 (0.83-1.09) H 09/23/19 12:00 Assessment/Plan this patient with multiple medical issues coming in with weakness and fever i am leaning towards viral infection on the patient patient still sweating crp very high cardio note noted suspicious of viral pericarditis plan to repeat echo again and see Problem List - Problems (1) Viral pericarditis Code(s): B33.23 - VIRAL PERICARDITIS (2) PSVT (paroxysmal supraventricular tachycardia) Code(s): I47.1 - SUPRAVENTRICULAR TACHYCARDIA (3) Diabetes mellitus Code(s): E11.9 - TYPE 2 DIABETES MELLITUS WITHOUT COMPLICATIONS (4) Pericardial effusion Code(s): I31.3 - PERICARDIAL EFFUSION (NONINFLAMMATORY) plan crp trending down continue monitoring rest as per the team
[2019-09-25 13:44] VITALS: BP 119/75; PULSE 95; TEMP 98.4
--- NOTE | 2019-09-25 14:55 | DS ---
Physical Examination Vital Signs: Vital Signs Temperature 98.4 F 09/25/19 13:43 Pulse Rate 95 H 09/25/19 13:43 Respiratory Rate 20 09/25/19 13:43 Blood Pressure 119/75 09/25/19 13:43 O2 Sat by Pulse Oximetry (%) 95 09/24/19 22:00 Constitutional: Yes: No Distress HENT: Yes: Atraumatic Neck: Yes: Supple Cardiovascular: Yes: Regular Rate and Rhythm Respiratory: Yes: CTA Bilaterally Gastrointestinal: Yes: Normal Bowel Sounds Extremities: Yes: WNL Edema: No Peripheral Pulses WNL: Yes Neurological: Yes: Alert Labs: CBC, BMP 09/24/19 06:15 09/24/19 06:15 Discharge Summary Problems reviewed: Yes Reason For Visit: PERICARDIAL EFFUSION Current Active Problems Diabetes mellitus (Acute) Hyperlipidemia (Acute) PSVT (paroxysmal supraventricular tachycardia) (Acute) Pericardial effusion (Acute) Viral pericarditis (Acute) Condition: Guarded - Instructions Diet, Activity, Other Instructions: see felt dyeing machine tender 2-3 days Referrals: Hermelindo Carey [Primary Care Provider] - Cuate Ferreira MD [Staff Physician] - Disposition: HOME - Home Medications Comprehensive Discharge Medication List: Ambulatory Orders Atorvastatin Ca [Lipitor] 10 mg PO HS 09/23/19 Metformin HCl [Glucophage] 500 mg PO TID 09/23/19 Metoprolol Succinate [Toprol Xl] 25 mg PO DAILY 09/23/19 cleared by cardiology to be dc
== END 2019-09-25 17:35 | disposition home or self-care (01) | DRG 316 ==
LOC: JER 11:19 → JERBED 14:47 → J4W 21:28
PROVIDERS: ADMIT Internal Medicine; ATTEND Internal Medicine
DX: I30.1 Infective pericarditis (principal); I31.3 Pericardial effusion (noninflammatory); I10 Essential (primary) hypertension; E78.5 Hyperlipidemia, unspecified; E11.9 Type 2 diabetes mellitus without complications; R00.0 Tachycardia, unspecified
CPT/HCPCS: 36415; 71045-TC-FY; 80053; 82550; 82803; 82962; 83605; 83690; 83880; 84443; 84484; 85025; 85610; 85651; 85730; 86140; 87040; 87804; 93005; 93010; 93306-TC; 99284-25; J0131; J7030